=== PATIENT | male | born 1980 | race Caucasian/White ===

== ENCOUNTER → 2017-07-31 | Day surgery (SDC) | payer OTHER ==
[2017-07-21 16:27] VITALS: Ht 174 cm; Wt 110.0 kg
[~2017-07-31] VITALS: Ht 174 cm; Wt 110.0 kg
[~2017-07-31] MED LIST: ACET300T3 PO; AMPH20CA3 PO; ATROPINE SULFATE 0.1 MG/ML 5ML SYR IV PRN; BACITRACIN OINT 15 GM TUBE ONE; BUPIVACAINE 0.5 % 5 MG/1 ML MPF 30ML VIAL ONE; CEFAZOLIN 2000MG IV PUSH 15 ML IV SCH; CEFAZOLIN SOD 2000MG/15 ML IV PUSH IV ONE; CLON0.5T3 PO; DEXAMETHASONE SOD INJ 4 MG/ML VIAL ONE; FENTANYL CITRATE INJ 50 MCG/1 ML 2 ML VIAL ONE; GABA-1220 PO; GLYCOPYRROLATE INJ 0.2 MG/ML VIAL ONE; KETOROLAC TROMETHAMINE 30 MG/ML VIAL IV. PRN; LABETALOL HCL IV 5 MG/ML 20ML IV PRN; LACTATED RINGER'S 1000ML 1,000 ML IV SCH; LIDOCAINE HCL 1% 20 ML VIAL ONE; LIDOCAINE HCL 2% 2 ML VIAL (20MG/ML) ONE; MIDAZOLAM HCL 1 MG/ML 2ML VIAL ONE; MoRPHine SULFATE 4 MG/ML 1 ML CARP\\VIAL IV PRN; NEOSTIGMINE METHYLSULFATE 5 MG/5 ML SYR ONE; ONDANSETRON INJ 2 MG/ML 2 ML VIAL IV PRN; ONDANSETRON INJ 2 MG/ML 2 ML VIAL ONE; OXYC-57 PO; OXYCODONE/ACETAMINOPHEN 5-325 TAB PO PRN; PROPOFOL IV EMULSION 10 MG/ML 20 ML VIAL ONE; QUET400T PO; ROCURONIUM BROMIDE 10 MG/ML 5 ML VIAL ONE; SODIUM CHLORIDE 0.9% 1000ML 1,000 ML IV SCH; TRAZ300T PO; VENL225T27 PO; VENL75CA PO
[2017-07-31 11:50] VITALS: BP 148/73; PULSE 102; TEMP 36.7; O2SAT 95
--- NOTE | 2017-07-31 12:25 | History & Physical Bridge Note ---
H&P Re-Evaluation Bridge Note: I have examined the patient, reviewed the History & Physical and in the interval since the performance of the History & Physical I have noted the following changes of clinical significance: No changes noted
--- NOTE | 2017-07-31 13:29 | [facility] Post Operative Brief Note ---
Immediate Operative Summary Operative Date July 31, 2017. Pre-Operative Diagnosis Recurrent Umbilical Hernia Post-Operative Diagnosis Same as preoperative Procedure(s) Performed Open Repair Recurrent Umbilical Hernia Repair Surgeon Dr. Mey Rizvi Accounting Tutor Surgeon(s) None per surgeon Estimated Blood Loss 5ml Findings Consistent with Post-Op Diagnosis hernia size 1x1cm, recurrent umbilical hernia Fluids (cc crystalloids) 1000ml Specimens None per surgeon. Drains None Anesthesia Type General Complication(s) none Disposition Accompanied Pt To Recover: yes Disposition: Recovery Room / PACU
--- NOTE | 2017-07-31 13:37 | Discharge Instructions ---
Discharge Instructions Date of Service July 31, 2017. Visit Reason for Visit: Umbilical Hernia Discharge Discharge Diagnosis / Problem: S/P repair umbilical hernia Discharge Goals Goal(s): Decrease discomfort, Improve function Activity Recommendations Activity Limitations: per Instructions/Follow-up section Lifting Limitations: no more than 25 pounds Exercise/Sports Limitations: rest today May Resume Sexual Activity: after two weeks Shower/Bathe: may shower/bathe in 3 days Driving or Machine Use: resume 3 days after discharge Anesthesia . Post Anesthesia Instructions: If you have had General Anesthesia or IV Sedation: * Do not drive today. * Resume driving when surgeon permits. * Do not make important decisions or sign legal documents today. * Call surgeon for: 1. Temperature elevations greater than 101 degrees F. 2. Uncontrollable pain. 3. Excessive bleeding. 4. Persistent nausea and vomiting. 5. Medication intolerance (nausea, vomiting or rash). * For nausea and vomiting use only clear liquids such as: tea, soda, bouillon until nausea subsides, then gradually increase diet as tolerated. * If you have any concerns or questions, call your surgeon's office. If physician is unavailable and it is an emergency, call 911 or go to the nearest emergency room. . Instructions / Follow-Up Instructions / Follow-Up keep the dressing on for 4 days, he can take a shower on 08/05/2017, no driving while taking pain medicine, Follow up Dr. bruno in 2 weeks, Diet Recommendations Recommended Home Diet: resume previous diet Procedures Procedures Performed: Open Repair Recurrent Umbilical Hernia Repair Pending Studies Studies pending at discharge: no Medical Emergencies . Who to Call and When: Medical Emergencies: If at any time you feel your situation is an emergency, please call 911 immediately. . Non-Emergent Contact Non-Emergency issues call your: Surgeon Call Non-Emergent contact if: you have a fever, temperature is above 100.5, your pain is not controlled, your pain is worsening, wound has increased drainage, wound has increased redness . . "Provider Documentation" section prepared by Mey Bruno. . [place] Drug Monitoring Program Search Results: no issues identified
[2017-07-31] MEDS: FENTANYL CITRATE INJ 50 MCG/1 ML 2 ML VIAL IV PRN ×3 (14:09→14:20)
[2017-07-31 14:45] VITALS: BP 124/69; PULSE 93; TEMP 36.5; O2SAT 94
[2017-07-31 15:15] VITALS: BP 131/66; PULSE 94; TEMP 36.5; O2SAT 94
--- NOTE | 2017-07-31 15:18 | Anesthesiology Progress Note ---
Anesthesia Post Op Note Date & Time July 31, 2017 at 15:18 Vital Signs Vital Signs Past 12 Hours Date Time Temp Pulse Resp B/P (MAP) Pulse Ox O2 Delivery O2 Flow Rate FiO2 07/31/17 14:45 36.5 93 20 124/69 94 Room Air 07/31/17 14:30 36.0 98 20 107/68 94 Room Air 07/31/17 14:20 95 22 128/76 92 Room Air 07/31/17 14:10 103 22 118/95 92 Room Air 07/31/17 14:00 100 24 120/69 97 Oxymask 15 07/31/17 13:50 103 20 100/67 94 Oxymask 15 07/31/17 13:41 36.2 104 14 106/70 92 Oxymask 15 07/31/17 11:50 36.7 102 18 148/73 (98) 95 Room Air Notes Mental Status: alert / awake / arousable, participated in evaluation Pt Amnestic to Procedure: Yes Nausea / Vomiting: adequately controlled Pain: adequately controlled Airway Patency, RR, SpO2: stable & adequate BP & HR: stable & adequate Hydration State: stable & adequate Anesthetic Complications: no major complications apparent
--- NOTE | 2017-07-31 16:39 | OPERATIVE REPORT ---
DATE OF OPERATION: 07/31/2017 PREOPERATIVE DIAGNOSIS: Recurrent umbilical hernia. POSTOPERATIVE DIAGNOSIS: Same. OPERATION: Open repair of umbilical hernia. SURGEON: Dr. Mey Rizvi. ANESTHESIA: General. ESTIMATED BLOOD LOSS: About 5 mL. FINDINGS: Recurrence of umbilical hernia, size about 1 x 1 cm. COMPLICATIONS: None. INDICATIONS FOR THE PROCEDURE: This is a 36-year-old gentleman who presented with recurrence of umbilical hernia. The patient was required to do open repair of umbilical hernia, possible mesh. I did talk to the patient about the benefits, risks, and alternatives to the procedure. I indicated the risks which may include but not limited to bleeding, infection, hernia recurrence, may need more procedure. The patient understood, and he signed informed consent. I answered all questions. DETAILS OF PROCEDURE: We brought in the patient to the OR, put the patient in the supine position. The patient received SCD on bilateral legs to prevent DVT. Also, the patient received 2 g Ancef IV for prophylactic antibiotic. The patient received general anesthesia without difficulty. The abdomen was appropriately draped in routine sterile fashion. After timeout, I injected local anesthesia by using 1% lidocaine mixed with 0.5% Marcaine around the umbilical area. I made a small incision just below the umbilicus and mobilized the umbilicus, found the patient had recurrent umbilical hernia size about 1 x 1 cm. I reduced the fat back to abdominal cavity, then I chose #1 Ethibond to primarily close the hernia in interrupted [id number] x2, rechecked, no active bleeding. Hernia closed nicely, no tension. I used 2-0 Vicryl, closed the subcutaneous layer, interrupted, closed the skin by using 4-0 Vicryl. We put the dressing on. The patient tolerated the procedure well. All the instrument, needle, and sponge counts were correct x2. At the end of the case, patient transferred to recovery room in stable condition. I attest to the content of the Intraoperative Record and any orders documented therein. Any exceptions are noted below. [id number]
== END | disposition home or self-care (01) ==
LOC: C.ACU 11:22
PROVIDERS: ATTEND Surgery
DX: K42.9 Umbilical hernia without obstruction or gangrene (principal); F17.200 Nicotine dependence, unspecified, uncomplicated; N30.90 Cystitis, unspecified without hematuria; F31.9 Bipolar disorder, unspecified; Z87.442 Personal history of urinary calculi